=== PATIENT | female | born 1955 | race Caucasian/White ===

== ENCOUNTER → 2021-09-20 | Outpatient (CLI) | payer MEDICAID ==
--- NOTE | 2021-09-20 08:49 | Diagnostic Imaging Report ---
Clinical Indication: AAA screening. Exam: Ultrasound of the abdominal aorta. Comparison study: None. Findings: There is no evidence of aneurysms. The maximum AP and transverse diameters for the upper, mid, and distal abdominal aorta are 2.2 cm x 2.2 cm, 1.6 cm x 1.6 cm, and 1.4 cm x 1.6 cm, respectively. Both common iliac artery contours are smooth with normal caliber with the right and left measuring 0.9 cm and 0.9 cm in greatest AP dimension. Impression: There is no evidence of aneurysmal dilation of the abdominal aorta or bilateral common iliac arteries. Dictated by: Dictated on workstation # [id number]
== END ==
LOC: RAD FS 07:48
PROVIDERS: ATTEND Nurse Practitioner
DX: Z13.6 Encounter for screening for cardiovascular disorders (principal)
CPT/HCPCS: 76775

== ENCOUNTER → 2021-10-04 | Outpatient (CLI) | payer MEDICAID ==
--- NOTE | 2021-10-04 14:00 | Diagnostic Imaging Report ---
CT CHEST SCREENING WO TECHNIQUE: Low-dose unenhanced CT of the chest was performed according to the screening protocol. Coronal MIP and sagittal MPR reformats are created. Automatic exposure controls were utilized to keep dose as low as reasonably achievable. INDICATION: Former smoker with 20 pack year history of smoking. COMPARISON: None available. FINDINGS: Pulmonary findings: No abnormality in the trachea. There is a 5 mm average right lower lobe pulmonary nodule which has a very low likelihood of becoming a clinically active cancer due to size. No suspicious pulmonary nodules. No pneumonia or edema. Extrapulmonary findings: No axillary or mediastinal lymphadenopathy. No pericardial or pleural effusion. Normal caliber thoracic aorta. No concerning abnormality in the upper abdomen. No worrisome focal osseous lesions. IMPRESSION: No suspicious pulmonary nodule. Lung-RADS category: 2 - Benign appearance or behavior Recommendations: Continued annual screening with low-dose CT in 12 months. Dictated by: Dictated on workstation # [id number]
== END ==
LOC: RAD 08:29
PROVIDERS: ATTEND Nurse Practitioner
DX: Z12.2 Encounter for screening for malignant neoplasm of respiratory organs (principal); F17.210 Nicotine dependence, cigarettes, uncomplicated
CPT/HCPCS: 71271

== ENCOUNTER → 2022-10-31 | Outpatient (CLI) | payer MEDICAID, MEDICARE, OTHER ==
--- NOTE | 2022-10-31 12:25 | Diagnostic Imaging Report ---
INDICATION: Hypercholesterolemia CT coronary calcium study performed with noncontrast images of the heart followed by calculation of cardiac calcium score. Dose reduction protocol was used There are no overt enlarged mediastinal or hilar nodes. The thoracic aorta and its visualized portion is not aneurysmal. Visualized portions of the lung quevedo are clear. There is extensive coronary calcification in the LAD territory as well as some calcification of the origin of the left main coronary artery. There is calcification at the ostium of the right coronary artery, as well. Calcium scores are as follows: 11.4 for the left main coronary artery 187.7 for LAD 189.9 for the right coronary artery. Total coronary calcium score was 389.0 which is compatible with moderate to severe plaque burden. IMPRESSION: Coronary calcium score 389.0 which is compatible with moderate to severe plaque burden. Consider further workup, as clinically warranted. Dictated by: Dictated on workstation # [id number]
== END ==
LOC: RAD FS 07:50
PROVIDERS: ATTEND Nurse Practitioner
DX: R93.89 Abnormal findings on diagnostic imaging of other specified body structures (principal); E78.00 Pure hypercholesterolemia, unspecified
CPT/HCPCS: 75571